=== PATIENT | female | born 1950 | race Caucasian/White ===

== ENCOUNTER → 2017-01-01 | Outpatient (CLI) | payer BC ==
[~2017-01-01] MED LIST: ESCT10T PO; FLUT16SP22 NS; HCT25T; HCTZ12.5T; HORMONE REPLACEMENT PO; LRT10T; LRT10T PO; MULT-608 PO; OMEP20CA12; PS30T PO; loestrin
--- OUTSIDE RECORDS SUMMARY | 2017-01-01 09:06 | XMS REPORT | Continuity of Care Document ---
Author Author [facility] Organization [facility] Address Unknown Phone Unavailable Allergies Active Description Code Type Severity Reaction Onset Reported/Identified Relationship to Patient Clinical Status Yes azithromycin [id number] Drug Allergy Unknown N/A 04/22/2007 Yes sulfamethoxazole [id number] Drug Allergy Unknown N/A 04/22/2007 Yes Tetanus Diphtheria Tox,Adult [id number] Drug Allergy Unknown N/A 04/22/2007 Yes tetracycline [id number] Drug Allergy Unknown N/A 04/22/2007 Yes trimethoprim [id number] Drug Allergy Unknown N/A 04/22/2007 Yes Deli Ham and [place] [employer] [place] Mild "Fuzzy tongue" 04/23/2007 Yes Shellfish [id number] Drug Allergy Severe "SYSTEMIC" 05/21/2011 Medications Problems Date Dx Coded Attending Type Code Diagnosis Diagnosed By 11/06/2015 EVAN GALLOWAY DO Ot Z12.31 Procedures Results Encounters ACCT No. Visit Date/Time Discharge Status Pt. Type Provider Facility Loc./Unit Complaint [id number] 11/24/2013 07:42:00 2013 23:59:59 CLS Outpatient [id number] 10/15/2015 15:31:00 ACT Outpatient EVAN GALLOWAY DO [facility] RAD
--- NOTE | 2017-01-02 10:28 | Diagnostic Imaging Report ---
Bilateral screening mammogram The current study was also evaluated with a Computer Aided Detection (CAD) system. INDICATION: Screening. No current complaints stated on the questionnaire. COMPARISON: 10/15/15. FINDINGS: The breasts are composed of scattered fibroglandular densities. There is increased prominence of subcentimeter asymmetries in the central aspect of the left CC projection and superior aspect of the left breast. The right breast demonstrate no definite change. No suspicious calcification is seen. IMPRESSION: Focal compression views and ultrasound evaluation for central and upper left breast asymmetries recommended. ACR BI-RADS Category 0: Incomplete. (Needs additional imaging evaluation). Result letter will be mailed to the patient. Note: At least 10% of breast cancer is not imaged by mammography. Dictated by: Dictated on workstation # [id number]
== END ==
LOC: RAD 09:04
PROVIDERS: ATTEND Obstetrics & Gynecology
DX: Z12.31 Encounter for screening mammogram for malignant neoplasm of breast (principal)
CPT/HCPCS: 77067

== ENCOUNTER → 2017-01-16 | Outpatient (CLI) | payer BC ==
--- OUTSIDE RECORDS SUMMARY | 2017-01-16 08:01 | XMS REPORT | Continuity of Care Document ---
Author Author [facility] Organization [facility] Address Unknown Phone Unavailable Allergies Active Description Code Type Severity Reaction Onset Reported/Identified Relationship to Patient Clinical Status Yes azithromycin [id number] Drug Allergy Unknown N/A 04/22/2007 Yes sulfamethoxazole [id number] Drug Allergy Unknown N/A 04/22/2007 Yes Tetanus Diphtheria Tox,Adult [id number] Drug Allergy Unknown N/A 04/22/2007 Yes tetracycline [id number] Drug Allergy Unknown N/A 04/22/2007 Yes trimethoprim [id number] Drug Allergy Unknown N/A 04/22/2007 Yes Deli Ham and [place] [employer] [place] Mild "Fuzzy tongue" 04/23/2007 Yes Shellfish [id number] Drug Allergy Severe "SYSTEMIC" 05/21/2011 Medications Problems Date Dx Coded Attending Type Code Diagnosis Diagnosed By 11/06/2015 EVAN GALLOWAY DO Ot Z12.31 01/01/2017 ERIK MATA MD Ot Z12.31 ENCNTR SCREEN MAMMOGRAM FOR MALIGNANT NE 01/02/2017 ERIK MATA MD, Ot Z12.31 ENCNTR SCREEN MAMMOGRAM FOR MALIGNANT NE 01/15/2017 ERIK MATA MD, Ot Z12.31 ENCNTR SCREEN MAMMOGRAM FOR MALIGNANT NE 01/16/2017 Ot V76.12 OTH SCREEN MAMMO-MALIGN NEOPLASM OF KATE 01/16/2017 ERIK MATA MD Ot V76.12 OTH SCREEN MAMMO-MALIGN NEOPLASM OF KATE 01/16/2017 EVAN GALLOWAY DO Ot Z12.31 ENCNTR SCREEN MAMMOGRAM FOR MALIGNANT NE 01/16/2017 ERIK MATA MD, Ot Z12.31 ENCNTR SCREEN MAMMOGRAM FOR MALIGNANT NE Procedures Results Encounters ACCT No. Visit Date/Time Discharge Status Pt. Type Provider Facility Loc./Unit Complaint [id number] 11/24/2013 07:42:00 2013 23:59:59 CLS Outpatient ERIK MATA MD [facility] RAD SCREENING [id number] 01/16/2017 07:57:00 ACT Outpatient ERIK MATA MD [facility] RAD ABNORMAL MAMMO [id number] 01/01/2017 09:04:00 ACT Outpatient ERIK MATA MD [facility] RAD SCREENING [id number] 10/15/2015 15:31:00 ACT Outpatient EVAN GALLOWAY DO [facility] RAD SCREENING [id number] 09/03/2012 08:13:00 Document Registration
--- NOTE | 2017-01-16 19:12 | Diagnostic Imaging Report ---
EXAMINATION: Left breast ultrasound. INDICATION: Central left breast asymmetries. TECHNIQUE: All four quadrants and the retroareolar region were examined on this study. FINDINGS: Unremarkable breast parenchyma is seen with no focal lesion. IMPRESSION: Negative study. Six month followup mammogram to ensure stability or resolution of the left breast asymmetries is recommended. ACR BI-RADS Category 3: Probably benign findings. Result letter will be mailed to the patient. Note: At least 10% of breast cancer is not imaged by mammography. Dictated by: Dictated on workstation # [id number]
--- NOTE | 2017-01-16 19:13 | Diagnostic Imaging Report ---
Left breast diagnostic mammogram. INDICATION: Asymmetries in the central and upper aspect of the left wrist. The current study was also evaluated with a Computer Aided Detection (CAD) system. FINDINGS: Focal compression views along the central CC projection asymmetry demonstrate resolution suggestive of summation artifact of parenchyma. There is persistent oval 8 mm asymmetry, however, in the upper aspect of the left breast on focal compression view. IMPRESSION: The asymmetry in the upper aspect of the left breast persists on focal compression evaluation. Ultrasound is pending. ACR BI-RADS Category 0: Incomplete. (Needs additional imaging evaluation). Result letter will be mailed to the patient. Note: At least 10% of breast cancer is not imaged by mammography. Dictated by: Dictated on workstation # [id number]
== END ==
LOC: RAD 07:57
PROVIDERS: ATTEND Obstetrics & Gynecology
DX: R92.8 Other abnormal and inconclusive findings on diagnostic imaging of breast (principal)
CPT/HCPCS: 76641